=== PATIENT | male | born 2000 | race Caucasian/White ===

== ENCOUNTER 2018-03-23 11:53 | Emergency (ER) | payer SELFPAY ==
[2018-03-23 12:25] LABS: #Eosinphils 0.2 thou/uL (0.0-0.7); #Lymphocytes 2.1 thou/uL (1.20-3.40); #Monocytes 0.7 thou/uL (0.11-0.59); %Basophils 0.5 % (0.0-1.0); %Eosinophils 3.1 % (0.0-10.0); %Lymphocytes 29.3 % (28.0-48.0); %Monocytes 10.4 % (0.0-4.0); %Neutrophils 56.7 % (31.0-61.0); Mean Corpuscular HGB CONC 31.9 g/dL (32.0-36.0); Mean Corpuscular Hemoglobin 26.6 pg (25.0-35.0); Mean Corpuscular Volume 83.3 fL (78.0-98.0); Mean Platelet Volume 6.1 fL (7.4-10.4); Platelet Count 526 thou/uL (130-400); RBC Distribution Width 14.6 % (11.5-14.5); Red Blood Cell (RBC) Count 4.88 mill/uL (4.00-5.20); White Blood Cell (WBC) Count 7.1 thou/uL (4.8-10.8)
[2018-03-23 12:53] LABS: Anion Gap 14 mmol/L (10-20); BUN (Urea Nitrogen) 8 mg/dL (8.4-21.0); Calc. Creatinine Clearance 0 mL/min (70-130); Calcium 9.7 mg/dL (7.8-10.44); Carbon Dioxide 23 mmol/L (22-29); Chloride 104 mmol/L (98-107); Estimated GFR-MDRD Greater than 90; Glucose 101 mg/dL (70-105); Potassium 4.1 mmol/L (3.5-5.1); Sodium 137 mmol/L (136-145)
--- NOTE | 2018-03-23 13:28 | RAD ---
CHEST PA AND LATERAL: HISTORY: Cough. FINDINGS: The heart size is normal. The lungs are well expanded, with bilateral interstitial infiltrates with upper and mid zone dominance. A cavitary lesion is noted in the right mid lung. IMPRESSION: Findings suspicious for pneumonia. Pulmonary tuberculosis should also be considered in the different ial diagnosis. CODE T POS: REX
== END 2018-03-23 14:23 | disposition home or self-care (01) ==
LOC: ERS 11:53
DX: J18.9 Pneumonia, unspecified organism (principal); F17.210 Nicotine dependence, cigarettes, uncomplicated
CPT/HCPCS: 36415; 71046; 80048; 85025; 87070; 87205; 93005

== ENCOUNTER 2018-03-26 23:34 | Inpatient (IN) | payer SELFPAY ==
[2018-03-27] MEDS ORDERED: HYDROcodone/Acetaminophen 10/325 mg Tablet ONE ×2 (00:12→00:25)
[2018-03-27] MEDS ORDERED: Piperacillin/Tazobactam 4.5 GM VIAL ONE (00:25)
[2018-03-27 00:37] LABS: #Basophils 0.1 thou/uL (0.0-0.2); #Eosinphils 0.3 thou/uL (0.0-0.7); #Lymphocytes 2.9 thou/uL (1.20-3.40); #Monocytes 0.9 thou/uL (0.11-0.59); #Neutrophils 8.1 thou/uL (1.40-6.50); %Basophils 0.6 % (0.0-1.0); %Eosinophils 2.4 % (0.0-10.0); %Lymphocytes 23.7 % (28.0-48.0); %Monocytes 6.9 % (0.0-4.0); %Neutrophils 66.4 % (31.0-61.0); Hemoglobin 13.1 g/dL (14.0-18.0); Mean Corpuscular HGB CONC 32.1 g/dL (32.0-36.0); Mean Corpuscular Hemoglobin 26.6 pg (25.0-35.0); Mean Corpuscular Volume 83.1 fL (78.0-98.0); Mean Platelet Volume 5.8 fL (7.4-10.4); Platelet Count 646 thou/uL (130-400); RBC Distribution Width 14.5 % (11.5-14.5); White Blood Cell (WBC) Count 12.2 thou/uL (4.8-10.8)
[2018-03-27 00:57] LABS: ALT (SGPT) 12 U/L (8-55); AST (SGOT) 15 U/L (10-45); Albumin 3.9 g/dL (3.5-5.0); Alkaline Phosphatase 82 U/L (Less than 750); Anion Gap 15 mmol/L (10-20); BUN (Urea Nitrogen) 10 mg/dL (8.4-21.0); Bilirubin, Total 0.3 mg/dL (0.2-1.2); Calc. Creatinine Clearance 0 mL/min (70-130); Calcium 9.6 mg/dL (7.8-10.44); Carbon Dioxide 26 mmol/L (22-29); Chloride 103 mmol/L (98-107); Estimated GFR-MDRD Greater than 90; Globulin 3.7 g/dL (2.4-3.5); Glucose 91 mg/dL (70-105); Potassium 4.5 mmol/L (3.5-5.1); Protein, Total 7.6 g/dL (6.0-8.3); Sodium 139 mmol/L (136-145)
[2018-03-27] MEDS ORDERED: diphenhydrAMINE 50 MG/ML VIAL ONE (01:14)
[2018-03-27] MEDS ORDERED: methylPREDNISolone Sod Succ/PF 125 MG/2 ML VIAL ONE (01:14)
[2018-03-27 02:09] LABS: HIV (1/2) Antibody/Antigen Non-Reactive (NonReactive); HIV 1/2 INDEX 0.14 S/CO (<1.00)
[2018-03-27] MEDS ORDERED: Acetaminophen 325 MG TAB PO PRN (03:12)
[2018-03-27] MEDS ORDERED: Senokot S 8.6-50 MG TAB PO PRN (03:12)
[2018-03-27] MEDS ORDERED: Sodium Chloride 0.9% 1,000 ML IV SCH (03:15)
--- NOTE | 2018-03-27 04:02 | HP ---
CHIEF COMPLAINT: Chest pain and shortness of breath. HISTORY OF PRESENT ILLNESS: The patient is a 17-year-old male with no significant past medical history who presents to the hospital with complaints of chest pain, initially substernal and then localized more to the left side of his chest. The patient stated that he has been having cough for about a year now. The patient stated that started last March and he has been given three bouts of antibiotics without any relief. The patient stated that he has always been told that either he has bronchitis or pneumonia and has been treated with antibiotics without improvement. The patient denies any recent travel out of the country. He states that he has moved around the [facility], initially went to [place], then to [place], and then back to [place], and then back to [place], and now currently he is residing in [place], [place]. The patient's mother and father are . Currently, the patient is living with father and his girlfriend. The patient's father had TB and was treated with isoniazid sometime back. The patient states that he was in halfway for one day only. The patient denies any exposures to any immigrants recently. The patient as mentioned has not traveled anywhere either. The patient has been having significant amounts of night sweats to the point that he changes cloths, also he has lost significant amount of weight over the last year. The patient continues to have this cough and is unable to help his father doing work around the house since he gets very short of breath. He denies any nausea, vomiting, or diarrhea. The patient did state that he has been feeling hot and cold and apparently has been having low-grade fever at home also. PAST MEDICAL HISTORY: None. PAST SURGICAL HISTORY: None. FAMILY HISTORY: Mother has Massimo's disease. He had siblings, who are fine. His father had latent TB. REVIEW OF SYSTEMS: All negative except for the ones mentioned above in the HPI. SOCIAL HISTORY: The patient used to smoke about three or four cigarettes a day, currently has not been doing that. Smokes sometimes marijuana and drinks few beers over the weekend. PHYSICAL EXAMINATION: VITAL SIGNS: Temperature of 98.8, heart rate of 80, blood pressure 112/60, he is 98% on room air. GENERAL: He is awake, alert, and oriented x3. Does not appear in any distress. HEENT: Normocephalic and atraumatic. No lymphadenopathy noted. He does appear to be very slim. CV: S1 and S2 present. No murmurs, rubs, or gallops. LUNGS: Clear to auscultation. No rhonchi or wheezes noted. ABDOMEN: Soft and nontender. Bowel sounds are present x2. EXTREMITIES: No edema. Pedal pulses are present x2. NEUROVASCULAR: No focal deficits noted. SKIN: No cuts, lesions, or bruises noted. LABORATORY RESULTS: His HIV test was negative. WBCs of 12.2, hemoglobin of 13.1, hematocrit of 40.8, platelets of 464. Differentials; neutrophils 66.4, lymphocytes of 23.7, monocytes of 6.9. Chemistry; sodium of 139, potassium of 4.5, BUN of 10, creatinine 0.81. He did have CT chest with contrast, which indicated there were multiple cavitary lesions in the lung, the largest in the right lung apex measuring 7.3 cm. There are additional noncavitary pulmonary nodules bilaterally and there is extensive tree in bud opacity consistent with bronchiolitis. The sequela of these findings is suspicious for atypical active infection such as mycobacterium or fungal infection. There is also mild mediastinal lymphadenopathy. ASSESSMENT AND PLAN: The patient is a very pleasant 17-year-old male who presents to the hospital with complaints of chest pain and shortness of breath. 1. Multiple cavitary lesions. Differential could be possible TB, possible fungal infection, possible autoimmune like Castro's, also malignancy; however, it is less likely. At this point, we will just rule out TB. We will put him on isolation. Consult Infectious Disease. We will put him on Unasyn for now. Also, HIV test is negative. We will check ANCA. We will also check acid-fast x3, interferon, also Fungitell has been sent. We will also put the patient on airborne isolation. I will hold off starting the patient on any kind of TB medication until he is seen by Infectious Disease. Also, we will check LDH and go from there. 2. Deep venous thrombosis prophylaxis. We will put the patient on sequential compression devices or Lovenox subcu. Job ID: [id number]
[2018-03-27] MEDS: Ampicillin/Sulbactam 3 GM in Sodium Chloride 0.9% 100 ML IVPB SCH ×2 (04:17→10:09)
[2018-03-27 05:52] VITALS: BMI 17.3
[2018-03-27] MEDS: traMADol HCl 50 MG TAB PO PRN ×3 (05:53→18:30)
[2018-03-27 06:36] LABS: #Lymphocytes 1.2 thou/uL (1.20-3.40); #Monocytes 0.1 thou/uL (0.11-0.59); #Neutrophils 9.5 thou/uL (1.40-6.50); %Basophils 0.2 % (0.0-1.0); %Eosinophils 0.1 % (0.0-10.0); %Lymphocytes 11.3 % (28.0-48.0); %Monocytes 0.5 % (0.0-4.0); %Neutrophils 87.9 % (31.0-61.0); Hemoglobin 13.1 g/dL (14.0-18.0); Mean Corpuscular HGB CONC 32.4 g/dL (32.0-36.0); Mean Corpuscular Volume 83.2 fL (78.0-98.0); Platelet Count 576 thou/uL (130-400); RBC Distribution Width 14.7 % (11.5-14.5); Red Blood Cell (RBC) Count 4.87 mill/uL (4.00-5.20); White Blood Cell (WBC) Count 10.8 thou/uL (4.8-10.8)
[2018-03-27 06:56] LABS: Anion Gap 14 mmol/L (10-20); BUN (Urea Nitrogen) 8 mg/dL (8.4-21.0); Calc. Creatinine Clearance 120 mL/min (70-130); Calcium 9.7 mg/dL (7.8-10.44); Carbon Dioxide 24 mmol/L (22-29); Chloride 105 mmol/L (98-107); Estimated GFR-MDRD Greater than 90; Glucose 153 mg/dL (70-105); Potassium 4.9 mmol/L (3.5-5.1); Sodium 138 mmol/L (136-145)
[2018-03-27] MEDS: Enoxaparin Sodium 40 MG/0.4 ML SYRINGE SC SCH (08:42)
--- NOTE | 2018-03-27 09:45 | CT ---
PRELIMINARY REPORT/[facility]ER[facility] AFTER-HOURS PROCEDURE CT Chest With Contrast EXAM DATE/TIME: 03/27/2018 12:44 AM CLINICAL HISTORY: 17 years old, male; Pain; Other: Pneumonia, R/O tb; Patient HX: M17 presents to ed for cough. PT moth er reports PT has had SX for 1 year. PT had been previously diagnosed with pertussis, and pneumonia, no help with previous treatment. PT reports night sweats, constant low grade fever, cough, chest pain , inability to drink, weight loss, fatigue. PT father reports he was previously exposed to tb and was treated, tests positive and is inactive. PT denies traveling out of the country, PT has been in custodial for one day, but had SX before. PT denies drug use. Discussed x-ray findings of lesion. TECHNIQUE: Axial computed tomography images of the chest with intravenous contrast. Coronal reformatted images were created and reviewed. COMPARISON: No relevant prior studies available. FINDINGS: Lungs: There are multiple cavitary lesions in the lungs, the largest in the right lung apex measuring a maximum of 7.3 cm and there are additional non-cavitary pulmonary nodules bilaterally and there is extensive tree in bud opacity consistent with bronchiolitis. The sequela of these findings is suspic ious for atypical active infection such as mycobacterial or fungal infection. Pleural space: Normal. No pneumothorax. No pleural effusion. Heart: Normal. No cardiomegaly. No pericardial effusion. Aorta: Normal. No aortic aneurysm. Lymph nodes: There is mild mediastinal lymphadenopathy. Bones/joints: Unremarkable. No acute fracture. Soft tissues: Unremarkable. IMPRESSION: 1. There are multiple cavitary lesions in the lungs, the largest in the right lung apex measuring a m aximum of 7.3 cm and there are additional non-cavitary pulmonary nodules bilaterally and there is ext ensive tree in bud opacity consistent with bronchiolitis. The sequela of these findings is suspicious for atypical active infection such as mycobacterial or fungal infection. 2. There is mild mediastinal lymphadenopathy. Thank you for allowing us to participate in the care of your patient. Dictated and Authenticated by: Guru Tucker MD 03/27/2018 1:01 AM Central Time ([place] & [place]) FINAL REPORT CT CHEST WITH IV CONTRAST: Date: 03/27/18 FINDINGS/IMPRESSION: I agree with the preliminary report given by Darcy. POS: KOSTA
--- NOTE | 2018-03-27 11:41 | PDOC.PN ---
- Subjective Encounter Start Date: 03/27/18 Encounter Start Time: 08:00 Subjective: no sob -: has cough with expectoration of yellow sputum, no blood -: is amb in room - Objective Resuscitation Status - Order Detail: 03/27/18 03:12 Resuscitation Status Routine Resuscitation Status: FULL: Full Resuscitation MAR Reviewed: Yes Vital Signs & Weight: Vital Signs (12 hours) Temp Pulse Resp BP Pulse Ox 03/27/18 07:20 97.4 F L 55 L 12 107/68 96 03/27/18 03:08 98.4 F 85 16 115/74 96 Weight Weight 128 lb I&O: 03/26/18 03/27/18 03/28/18 06:59 06:59 06:59 Intake Total 540 Balance 540 Result Diagrams: 03/27/18 06:10 03/27/18 06:10 Phys Exam - Physical Examination HEENT: PERRLA, moist MMs Neck: no JVD, supple Respiratory: no wheezing, no rales Cardiovascular: RRR, no significant murmur Gastrointestinal: soft, non-tender, positive bowel sounds Musculoskeletal: no edema, pulses present Neurological: non-focal, moves all 4 limbs Psychiatric: normal affect, A&O x 3 Dx/Plan (1) Pulmonary cavitary lesion Code(s): J98.4 - OTHER DISORDERS OF LUNG Status: Acute - Plan to r/o TB, await afb sputum samples from patient -: is on unasyn -: d/w , will see patient -: fungitel, quantiferon were sent out * . Review of Systems - Medications/Allergies Allergies/Adverse Reactions: Allergies Allergy/AdvReac Type Severity Reaction Status Date / Time vancomycin Allergy Verified 03/27/18 05:38 Medications: Current Medications Acetaminophen (Tylenol) 650 mg PO Q4H PRN PRN Reason: Headache/Fever/Mild Pain (1-3) Last Admin: 03/27/18 04:18 Dose: 650 mg Enoxaparin Sodium (Lovenox) 40 mg SC 0900 [facility] Last Admin: 03/27/18 08:42 Dose: 40 mg Sodium Chloride (Normal Saline 0.9%) 1,000 mls @ 75 mls/hr IV .[id number] [facility] Last Admin: 03/27/18 04:16 Dose: 1,000 mls Ampicillin Sodium/Sulbactam (Sodium 3 gm/ Sodium Chloride) 100 mls @ 200 mls/ hr IVPB 0400,1000,1600,2200 [facility] Last Admin: 03/27/18 10:09 Dose: 100 mls Senna/Docusate Sodium (Senokot S) 2 tab PO BIDPRN PRN PRN Reason: Constipation Tramadol HCl (Ultram) 50 mg PO Q6H PRN PRN Reason: Moderate Pain (4-6) Last Admin: 03/27/18 05:53 Dose: 50 mg
[2018-03-27] MEDS ORDERED: Piperacillin/Tazobactam 3.375 GM in Sodium Chloride 0.9% 100 ML IVPB SCH (16:00)
[2018-03-27] MEDS: Sodium Chloride 3% (15 ML) NEB NEB SCH (19:05)
--- NOTE | 2018-03-27 19:09 | CON ---
DATE OF CONSULTATION: 03/27/2018 SERVICE: Pulmonary Medicine. REASON FOR CONSULTATION: Cavitary lesions. HISTORY OF PRESENT ILLNESS: The patient is a 17-year-old white male with past medical history significant for essentially nothing. For the last year, he has had a productive cough. He brings up yellow sputum on a daily basis. Sometimes, it is worse than others. It has been under investigation on multiple occasions. He has been on some antibiotics and steroids throughout the year. That being said, it just simply progressing. He is having night sweats, weight loss that has been unexplained. He has no known exposures to chemicals, dust, asbestos, or tuberculosis. He is actually in his usual state of health currently. PAST MEDICAL HISTORY: Chronic cough. PAST SURGICAL HISTORY: None. FAMILY HISTORY: Noncontributory. Of note, he does not have any cystic fibrosis or tuberculosis in primary family members. His father has latent tuberculosis, but has never had active TB. SOCIAL HISTORY: Negative for current alcohol, tobacco, or illicit drug use. He rarely uses marijuana. He has had a couple of beers from time to time, but never drinks excess. He has no exposure to chemicals, dust, asbestos, or tuberculosis that he is aware of. ALLERGIES: NO KNOWN DRUG ALLERGIES. MEDICATIONS: List of his inpatient medications was reviewed. I have discontinued his antibiotics currently. REVIEW OF SYSTEMS: General, head, ears, eyes, nose, throat, cardiovascular, respiratory, GI, , musculoskeletal, neurologic, and skin are negative except as mentioned in the HPI. PHYSICAL EXAMINATION: VITAL SIGNS: Afebrile, pulse 77, blood pressure 116/66, respirations 12, and saturation 99% on room air. GENERAL: The patient is awake, alert, in no apparent distress. LUNGS: Excellent air entry. Rhonchi are present. No prolonged expiratory phase or wheezing is present. HEART: Normal rate regular. ABDOMEN: Soft, nontender, and nondistended. Bowel sounds are positive. MUSCULOSKELETAL: No cyanosis or clubbing. No pitting in the bilateral lower extremities. NEUROLOGIC: Grossly nonfocal. LABORATORY DATA: WBC 10.8, hemoglobin 13.1, and platelets 576,000. Basic metabolic profile and liver function studies are unremarkable. LDH is normal, lactate 1.1. HIV 1 and 2 are nonreactive. IMAGING: CT of the chest demonstrates extensive tree-in-bud opacifications scattered throughout bilateral lung parker. He also has a large cavitating cystic structure in the right upper lobe, and a smaller one in the posterior segment of the right lower lobe. There are two small cavities in the left mid lung zone as well. ASSESSMENT: 1. Chronic cough. 2. Abnormal CT scan, characterized by extensive tree-in-bud opacifications, and pulmonary cavities/cystic structures with overt bronchiectasis noted. DISCUSSION AND PLAN: I am going to interrupt his antibiotic therapy. We can resume empiric antibiotics if he becomes increasingly septic. That being said, I would like for him to generate 3 sputums over the next 24 hours and possibly have the patient undergo bronchoscopy without any antibiotics on board. If we do not get any answer with the sputum over the next 24 hours, we will plan on doing a bronchoscopy Tuesday. I will get a rheumatoid factor to add to the ANCAs, which are currently pending. Agree with fungal studies. We will have respiratory therapy generate sputum. Cystic fibrosis panel will be obtained as the patient has cystic structures, in addition to some overt bronchiectasis. This patient will need to remain in-house until the bronchoscopy specimen is obtained if we need to. 70 minutes have been devoted to this patient in various activities. I personally reviewed all imaging studies and laboratory data noted within this document. For fifty percent of this time, I was interacting with the patient at the bedside or coordinating care with the care team. For the remainder of the time I was immediately available to the patient in the hospital unit. Job ID: [id number] MTDD
--- NOTE | 2018-03-27 20:05 | CON ---
DATE OF CONSULTATION: 03/27/2018 REASON FOR CONSULTATION: Possible tuberculosis. HISTORY OF PRESENT ILLNESS: A 17-year-old admitted with cavitary pneumonia and chronic cough, and weight loss, treated previously as routine community-acquired pneumonia elsewhere without improvement. 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 He is currently living in [place], [place] with his father. Apparently, his father had what he describes as latent tuberculosis treated with INH in the past and the patient was in detention for 1 day in the past. He was admitted in Airborne Precautions and sputum has been submitted for evaluation. No headaches, visual symptoms, sore throat, odynophagia, or dysphagia. No toothache or back pain. No abdominal pain or diarrhea. No genitourinary symptoms. No joint symptoms. PAST MEDICAL HISTORY: Otherwise negative. PAST SURGICAL HISTORY: No surgical history. FAMILY HISTORY: Mother has [place] disease. His father had a history of latent TB in the past, treated with INH reportedly. SOCIAL HISTORY: Smokes every other day. 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 Drinks beer mostly. No drug use otherwise. ALLERGIES: VANCOMYCIN REPORTEDLY. PHYSICAL EXAMINATION: VITAL SIGNS: T-max 98.4. Other vital signs are normal. His weight is 128 pounds, he is 6 feet tall. SKIN: Unremarkable. HEENT: Ocular movements conjugate. Oral cavity normal. Numerous teeth in place in good shape. NECK: Supple. No jugular vein distention. No lymphadenopathy. LUNGS: With no obvious crackles or wheezing. HEART: S1 and S2, regular rate. ABDOMEN: No abdominal findings of note. No distention or organomegaly or tenderness. No ascites. No bladder distention. MUSCULOSKELETAL: No joint inflammatory activity. NEUROLOGIC: He is awake, alert, oriented. Nonfocal. LABORATORY DATA: White cell count 12,000 and now 10,000, hemoglobin 13, platelets 646, and 66% neutrophils. Sodium 139, creatinine 0.81. Liver profile normal. Albumin 3.9, globulin 3.7, LDH 147. HIV serology negative. Had a respiratory culture from admission and that is a routine with polymicrobial mariajose, 5 to 10 epithelial cells. AFB is pending. CT of chest demonstrated multiple cavitary lesions in lungs, largest in the right lung apex 7.53 cm; additional noncavitary pulmonary nodules bilaterally; extensive tree-in-bud opacity consistent with bronchiolitis. There is mild mediastinal lymphadenopathy. ASSESSMENT: Chronic cavitary pneumonia with weight loss in a young man with some history of exposure to tuberculosis. DISCUSSION: Differential diagnosis obviously mycobacterium tuberculosis infection as the top ten possibilities here, other possibilities would be fungal infection which is less likely, aspiration pneumonia due to anaerobe which is unlikely, other pyogenic infections unlikely as well, particularly staphylococcal. He does not have the degree of toxicity that one would expect in that scenario. Vasculitis or congenital process such as lymphangioleiomyomatosis, histiocytosis X are less likely. Continuous sampling sputum for hopefully establishing diagnosis and then starting treatment. I believe QuantiFERON has been submitted as well. HIV was negative and no other issues are apparent at this point in time. Job ID: [id number]
[2018-03-28] MEDS: traMADol HCl 50 MG TAB PO PRN ×4 (00:19→21:03)
[2018-03-28] MEDS: Sodium Chloride 3% (15 ML) NEB NEB SCH (07:35)
[2018-03-28] MEDS: Enoxaparin Sodium 40 MG/0.4 ML SYRINGE SC SCH (09:12)
--- NOTE | 2018-03-28 11:11 | PDOC.PN ---
- Subjective Encounter Start Date: 03/28/18 Encounter Start Time: 08:20 Subjective: no sob, feels better -: eating and ambulating well - Objective Resuscitation Status - Order Detail: 03/27/18 03:12 Resuscitation Status Routine Resuscitation Status: FULL: Full Resuscitation MAR Reviewed: Yes Vital Signs & Weight: Vital Signs (12 hours) Temp Pulse Resp BP Pulse Ox 03/28/18 07:35 62 16 97 03/28/18 07:33 97.5 F L 62 18 104/69 97 03/28/18 04:27 97.4 F L 94 20 115/69 99 03/28/18 00:25 97.5 F L 63 20 105/61 98 Weight Admit Weight 128 lb Weight 128 lb I&O: 03/27/18 03/28/18 03/29/18 06:59 06:59 06:59 Intake Total 2290 Balance 2290 Result Diagrams: 03/27/18 06:10 03/27/18 06:10 Phys Exam - Physical Examination HEENT: PERRLA, moist MMs Neck: no JVD, supple Respiratory: no wheezing, no rales Cardiovascular: RRR, no significant murmur Gastrointestinal: soft, non-tender, positive bowel sounds Musculoskeletal: no edema, pulses present Neurological: non-focal, moves all 4 limbs Psychiatric: normal affect, A&O x 3 Dx/Plan (1) Pulmonary cavitary lesion Code(s): J98.4 - OTHER DISORDERS OF LUNG Status: Acute Comment: multiple cavities - Plan has given sputum samples for afb, await results -: further w/u per -: is off antibiotics -: nebs prn * . Review of Systems - Medications/Allergies Allergies/Adverse Reactions: Allergies Allergy/AdvReac Type Severity Reaction Status Date / Time vancomycin Allergy Verified 03/27/18 05:38 Medications: Current Medications Acetaminophen (Tylenol) 650 mg PO Q4H PRN PRN Reason: Headache/Fever/Mild Pain (1-3) Last Admin: 03/27/18 04:18 Dose: 650 mg Enoxaparin Sodium (Lovenox) 40 mg SC 0900 [facility] Last Admin: 03/28/18 09:12 Dose: 40 mg Pneumococcal Polyvalent Vaccine (Pneumovax 23) 0.5 ml IM .ONCE ONE Stop: 03/29/18 09:01 Senna/Docusate Sodium (Senokot S) 2 tab PO BIDPRN PRN PRN Reason: Constipation Sodium Chloride (Sodium Chloride 3%) 10 ml NEB BID-RT [facility] Stop: 03/28/18 18:31 Last Admin: 03/28/18 07:35 Dose: 10 ml Tramadol HCl (Ultram) 50 mg PO Q6H PRN PRN Reason: Moderate Pain (4-6) Last Admin: 03/28/18 06:29 Dose: 50 mg
[2018-03-28] MEDS ORDERED: Pyrazinamide 500 MG TAB PO SCH (15:30)
[2018-03-28] MEDS ORDERED: Rifampin 300 MG CAP PO SCH (16:00)
[2018-03-28] MEDS ORDERED: Isoniazid 100 MG TAB PO SCH (16:00)
--- NOTE | 2018-03-28 17:04 | PRG ---
DATE OF SERVICE: 03/28/2018 SUBJECTIVE: Demario Botello is sleeping when I entered the room. OBJECTIVE: GENERAL: He is afebrile. VITAL SIGNS: Heart rate is 58, respiratory rate 16, oximetry is 96% on room air , and blood pressure 95/58. He says he produces sputum today. This has not resulted yet. AFB smear from yesterday was 4+ positive AFB, this was not called to me. IMPRESSION: Mycobacterium tuberculosis, most likely. PLAN: Start treatment, pending sensitivities. Job ID: [id number] MTDD
[2018-03-29] MEDS ORDERED: Rifampin 300 MG CAP PO SCH ×2 (09:00→10:00)
[2018-03-29] MEDS ORDERED: Ethambutol HCl 400 MG TAB PO SCH (09:00)
[2018-03-29] MEDS ORDERED: Pyrazinamide 500 MG TAB PO SCH (09:00)
[2018-03-29] MEDS ORDERED: Isoniazid 100 MG TAB PO SCH ×2 (09:00→10:00)
[2018-03-29] MEDS: traMADol HCl 50 MG TAB PO PRN ×3 (09:10→21:34)
[2018-03-29] MEDS: pyridOXINE 50 MG (B6) TAB PO SCH (09:10)
[2018-03-29] MEDS: Enoxaparin Sodium 40 MG/0.4 ML SYRINGE SC SCH (09:10)
[2018-03-29] MEDS: Pyrazinamide 500 MG TAB PO SCH (09:11)
[2018-03-29] MEDS: Ethambutol HCl 400 MG TAB PO SCH (09:11)
[2018-03-29] MEDS: Rifampin 300 MG CAP PO SCH (09:12)
[2018-03-29] MEDS: Isoniazid 100 MG TAB PO SCH (09:12)
--- NOTE | 2018-03-29 10:42 | PDOC.PN ---
- Subjective Encounter Start Date: 03/29/18 Encounter Start Time: 10:00 Subjective: no complaints - Objective Resuscitation Status - Order Detail: 03/27/18 03:12 Resuscitation Status Routine Resuscitation Status: FULL: Full Resuscitation MAR Reviewed: Yes Vital Signs & Weight: Vital Signs (12 hours) Temp Pulse Resp BP Pulse Ox 03/29/18 08:12 98.1 F 78 18 94/58 L 93 L 03/29/18 04:05 98.3 F 80 18 102/61 94 L 03/29/18 00:05 98.6 F 85 16 108/69 97 03/28/18 23:27 95 Weight Admit Weight 128 lb Weight 128 lb I&O: 03/28/18 03/29/18 03/30/18 06:59 06:59 06:59 Intake Total 2290 1232 Balance 2290 1232 Result Diagrams: 03/27/18 06:10 03/27/18 06:10 Phys Exam - Physical Examination HEENT: PERRLA, moist MMs Neck: no JVD, supple Respiratory: no wheezing, no rales Cardiovascular: RRR, no significant murmur Gastrointestinal: soft, non-tender, positive bowel sounds Musculoskeletal: no edema, pulses present Neurological: non-focal, moves all 4 limbs Psychiatric: normal affect, A&O x 3 Dx/Plan (1) Pulmonary tuberculosis confirmed by sputum microscopy Code(s): A15.0 - TUBERCULOSIS OF LUNG Status: Acute - Plan is on rifampin, inh, ethambutol, pyrazinamide and B6 -: dc plan per pulm adv -: [facility] dept has been updated per CM Jakeh * . Review of Systems - Medications/Allergies Allergies/Adverse Reactions: Allergies Allergy/AdvReac Type Severity Reaction Status Date / Time vancomycin Allergy Verified 03/27/18 05:38 Medications: Current Medications Acetaminophen (Tylenol) 650 mg PO Q4H PRN PRN Reason: Headache/Fever/Mild Pain (1-3) Last Admin: 03/27/18 04:18 Dose: 650 mg Enoxaparin Sodium (Lovenox) 40 mg SC 0900 [facility] Last Admin: 03/29/18 09:10 Dose: 40 mg Ethambutol HCl (Myambutol) 800 mg PO DAILY [facility] Last Admin: 03/29/18 09:11 Dose: 800 mg Isoniazid (Isoniazid) 300 mg PO 1000 [facility] Last Admin: 03/29/18 09:12 Dose: 300 mg Pyrazinamide (Pyrazinamide) 1,000 mg PO DAILY [facility] Last Admin: 03/29/18 09:11 Dose: 1,000 mg Pyridoxine HCl (Vitamin B 6) 50 mg PO DAILY [facility] Last Admin: 03/29/18 09:10 Dose: 50 mg Rifampin (Rifadin) 600 mg PO 1000 [facility] Last Admin: 03/29/18 09:12 Dose: 600 mg Senna/Docusate Sodium (Senokot S) 2 tab PO BIDPRN PRN PRN Reason: Constipation Tramadol HCl (Ultram) 50 mg PO Q6H PRN PRN Reason: Moderate Pain (4-6) Last Admin: 03/29/18 09:10 Dose: 50 mg
[2018-03-29 14:24] LABS: ANA Symphony (Qualitative) Negative (Negative); ANA Symphony (Quantitative) 0.1 Ratio (< 0.7 Negative); dsDNA IgG Antibody Less than 0.5 IU/mL (<10 Negative)
[2018-03-29 14:40] LABS: CCP IgG Antibody 0.6 EliAU/mL (<7 Negative); EliA RAS New Method **** NEW METHOD ****; Rheumatoid Factor IgA Antibody 1.7 IU/mL (<14 Negative); Rheumatoid Factor IgM Antibody 0.7 IU/mL (<3.5 Negative)
--- NOTE | 2018-03-29 17:46 | PRG ---
DATE OF SERVICE: 03/29/2018 SERVICE: Pulmonary Medicine. INTERVAL HISTORY: The patient is doing fine from Respiratory standpoint. He is coughing up sputum. Denies any current chest pain, fevers, or chills. Otherwise, there has been no interval change to his condition. OBJECTIVE: VITAL SIGNS: Afebrile, pulse 93, blood pressure 110/69, respirations 16, and saturation is 96% on room air. GENERAL: The patient is awake, alert, in no apparent distress. LUNGS: Excellent air entry. Rhonchi are present. No prolonged expiratory phase or wheezing is appreciated. HEART: Normal rate, regular. ABDOMEN: Soft, nontender, and nondistended. Bowel sounds are positive. MUSCULOSKELETAL: No cyanosis or clubbing. There is no pitting in the bilateral lower extremities. NEUROLOGIC: Grossly nonfocal. LABORATORIES: CHEL screen, rheumatoid factor, CHEL is unremarkable. CCP is negative. HIV-1 and 2 are nonreactive. Respiratory virus panel is negative. AFB smear is positive at 4+ in 2/2 cultures. ASSESSMENT: 1. Pulmonary tuberculosis, suspected. 2. Bronchiectasis. 3. Pulmonary cavities. DISCUSSION: The patient most likely has active pulmonary tuberculosis. I would start fourth-drug therapy. From my perspective, he is stable for transition out of the hospital. I will have him return to clinic to see me in 3 months, and my plan is to repeat a CT scan of the chest in roughly September of 2018. At this point, he has no further requirements for inpatient Pulmonary Critical Care opinion, and I will sign off. Please call with additional questions or concerns moving forward. Job ID: [id number]
--- NOTE | 2018-03-29 23:34 | PRG ---
DATE OF SERVICE: 03/29/2018 SUBJECTIVE: Mr. Botello is feeling well, still coughing, intermittent sputum production. No chest pain. No abdominal pain or diarrhea. OBJECTIVE: VITAL SIGNS: T-max 99.2, pulse 97, respirations 20, and O2 saturation 98%. GENERAL: Does not appear to be in any distress. Awake and oriented. LUNGS: Symmetric air entry. Expiratory crackles, left side. HEART: S1 and S2. Regular rate. ABDOMEN: Soft, not distended. NEURO: Normal. LABORATORY DATA: White cell count 10.8, hemoglobin 13, platelets 576. Creatinine 0.8. HIV serology negative. Now, we have two samples with 4+ acid-fast bacilli seen. ASSESSMENT AND DISCUSSION: Cavitary pneumonia, chronic with positive AFB, 4+ in sputum. Most likely scenario is mycobacterium tuberculosis as expected. The patient has been started on 4-drug regimen to be continued under guidance by Health Department after discharge planning. He should be discharged on quarantine followed by the Health Department to be released once they clear him from usually 2 to 3 weeks after discharge and proper intake of antimycobacterial regimen. Job ID: [id number]
[2018-03-30] MEDS: Enoxaparin Sodium 40 MG/0.4 ML SYRINGE SC SCH (08:42)
[2018-03-30] MEDS: Pyrazinamide 500 MG TAB PO SCH (08:43)
[2018-03-30] MEDS: Rifampin 300 MG CAP PO SCH (08:43)
[2018-03-30] MEDS: Ethambutol HCl 400 MG TAB PO SCH (08:43)
[2018-03-30] MEDS: pyridOXINE 50 MG (B6) TAB PO SCH (08:47)
[2018-03-30] MEDS: Isoniazid 100 MG TAB PO SCH (08:47)
[2018-03-30] MEDS: traMADol HCl 50 MG TAB PO PRN ×3 (10:01→22:52)
--- NOTE | 2018-03-30 13:41 | PDOC.PN ---
- Subjective Encounter Start Date: 03/30/18 Encounter Start Time: 10:15 Subjective: no new complaints -: no abd pain or nausea -: urine is orange as expected with rifampin - Objective Resuscitation Status - Order Detail: 03/27/18 03:12 Resuscitation Status Routine Resuscitation Status: FULL: Full Resuscitation MAR Reviewed: Yes Vital Signs & Weight: Vital Signs (12 hours) Temp Pulse Resp BP BP Pulse Ox 03/30/18 13:27 89 107/68 03/30/18 11:25 98.6 F 97 12 82/60 L 94 L 03/30/18 09:12 95 03/30/18 07:45 98.2 F 98 16 108/69 95 03/30/18 04:33 97.8 F 77 20 91/57 L 93 L Weight Admit Weight 128 lb Weight 128 lb I&O: 03/29/18 03/30/18 03/31/18 06:59 06:59 06:59 Intake Total 1232 Balance 1232 Result Diagrams: 03/27/18 06:10 03/27/18 06:10 Phys Exam - Physical Examination HEENT: PERRLA, moist MMs Neck: no JVD, supple Respiratory: no wheezing, no rales Cardiovascular: RRR, no significant murmur Gastrointestinal: soft, non-tender, positive bowel sounds Musculoskeletal: no edema, pulses present Neurological: non-focal, moves all 4 limbs Psychiatric: normal affect, A&O x 3 Dx/Plan (1) Pulmonary tuberculosis confirmed by sputum microscopy Code(s): A15.0 - TUBERCULOSIS OF LUNG Status: Acute - Plan pt is planning to stay with his biological mom and sister in [place] -: 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 Review of Systems - Medications/Allergies Allergies/Adverse Reactions: Allergies Allergy/AdvReac Type Severity Reaction Status Date / Time vancomycin Allergy Verified 03/27/18 05:38 Medications: Current Medications Acetaminophen (Tylenol) 650 mg PO Q4H PRN PRN Reason: Headache/Fever/Mild Pain (1-3) Last Admin: 03/27/18 04:18 Dose: 650 mg Enoxaparin Sodium (Lovenox) 40 mg SC 0900 [facility] Last Admin: 03/30/18 08:42 Dose: 40 mg Ethambutol HCl (Myambutol) 800 mg PO DAILY [facility] Last Admin: 03/30/18 08:43 Dose: 800 mg Isoniazid (Isoniazid) 300 mg PO 1000 [facility] Last Admin: 03/30/18 08:47 Dose: 300 mg Pyrazinamide (Pyrazinamide) 1,000 mg PO DAILY [facility] Last Admin: 03/30/18 08:43 Dose: 1,000 mg Pyridoxine HCl (Vitamin B 6) 50 mg PO DAILY [facility] Last Admin: 03/30/18 08:47 Dose: 50 mg Rifampin (Rifadin) 600 mg PO 1000 [facility] Last Admin: 03/30/18 08:43 Dose: 600 mg Senna/Docusate Sodium (Senokot S) 2 tab PO BIDPRN PRN PRN Reason: Constipation Tramadol HCl (Ultram) 50 mg PO Q6H PRN PRN Reason: Moderate Pain (4-6) Last Admin: 03/30/18 10:01 Dose: 50 mg
[2018-03-30 14:12] LABS: Cytoplasmic (C-ANCA) <1:20 titer (Neg:<1:20); Myeloperoxidase AutoAbs <9.0 U/mL (0.0-9.0); Perinuclear (P-ANCA) <1:20 titer (Neg:<1:20); Proteinase-3 AutoAbs Less than 3.5 U/mL (0.0-3.5)
[2018-03-31] MEDS: Pyrazinamide 500 MG TAB PO SCH (08:58)
[2018-03-31] MEDS: pyridOXINE 50 MG (B6) TAB PO SCH (08:58)
[2018-03-31] MEDS: Isoniazid 100 MG TAB PO SCH (08:58)
[2018-03-31] MEDS: Rifampin 300 MG CAP PO SCH (08:59)
[2018-03-31] MEDS: Enoxaparin Sodium 40 MG/0.4 ML SYRINGE SC SCH (08:59)
[2018-03-31] MEDS: Ethambutol HCl 400 MG TAB PO SCH (08:59)
--- NOTE | 2018-03-31 09:59 | PDOC.PN ---
- Subjective Encounter Start Date: 03/31/18 Encounter Start Time: 09:05 Subjective: no sob, feels better -: no new complaints - Objective Resuscitation Status - Order Detail: 03/27/18 03:12 Resuscitation Status Routine Resuscitation Status: FULL: Full Resuscitation MAR Reviewed: Yes Vital Signs & Weight: Vital Signs (12 hours) Temp Pulse Resp BP BP Pulse Ox 03/31/18 09:45 95 03/31/18 08:00 98.2 F 90 16 110/69 95 03/31/18 04:25 98.2 F 86 20 107/71 96 03/31/18 00:27 98.5 F 93 20 114/76 96 Weight Admit Weight 128 lb Weight 128 lb Result Diagrams: 03/27/18 06:10 03/27/18 06:10 Phys Exam - Physical Examination HEENT: PERRLA, moist MMs Neck: no JVD, supple Respiratory: no wheezing, no rales Cardiovascular: RRR, no significant murmur Gastrointestinal: soft, non-tender, positive bowel sounds Musculoskeletal: no edema, pulses present Neurological: non-focal, moves all 4 limbs Psychiatric: normal affect, A&O x 3 Dx/Plan (1) Pulmonary tuberculosis confirmed by sputum microscopy Code(s): A15.0 - TUBERCULOSIS OF LUNG Status: Acute - Plan is on 4 anti TB drugs with vit B6 -: may dc anytime health dept is ready for him -: hemostable -: tolerating meds well so far * . Review of Systems - Medications/Allergies Allergies/Adverse Reactions: Allergies Allergy/AdvReac Type Severity Reaction Status Date / Time vancomycin Allergy Verified 03/27/18 05:38 Medications: Current Medications Acetaminophen (Tylenol) 650 mg PO Q4H PRN PRN Reason: Headache/Fever/Mild Pain (1-3) Last Admin: 03/27/18 04:18 Dose: 650 mg Enoxaparin Sodium (Lovenox) 40 mg SC 0900 [facility] Last Admin: 03/31/18 08:59 Dose: 40 mg Ethambutol HCl (Myambutol) 800 mg PO DAILY [facility] Last Admin: 03/31/18 08:59 Dose: 800 mg Isoniazid (Isoniazid) 300 mg PO 1000 [facility] Last Admin: 03/31/18 08:58 Dose: 300 mg Pyrazinamide (Pyrazinamide) 1,000 mg PO DAILY [facility] Last Admin: 03/31/18 08:58 Dose: 1,000 mg Pyridoxine HCl (Vitamin B 6) 50 mg PO DAILY [facility] Last Admin: 03/31/18 08:58 Dose: 50 mg Rifampin (Rifadin) 600 mg PO 1000 [facility] Last Admin: 03/31/18 08:59 Dose: 600 mg Senna/Docusate Sodium (Senokot S) 2 tab PO BIDPRN PRN PRN Reason: Constipation Tramadol HCl (Ultram) 50 mg PO Q6H PRN PRN Reason: Moderate Pain (4-6) Last Admin: 03/30/18 22:52 Dose: 50 mg
[2018-03-31] MEDS: traMADol HCl 50 MG TAB PO PRN ×2 (10:43→16:53)
[2018-03-31 17:10] LABS: A. flavus Negative (Neg:<1:1); A. fumigatus Negative (Neg:<1:1); A. niger Negative (Neg:<1:1)
[2018-04-01] MEDS: traMADol HCl 50 MG TAB PO PRN ×2 (00:08→22:35)
[2018-04-01] MEDS: pyridOXINE 50 MG (B6) TAB PO SCH (09:20)
[2018-04-01] MEDS: Rifampin 300 MG CAP PO SCH (09:20)
[2018-04-01] MEDS: Ethambutol HCl 400 MG TAB PO SCH (09:21)
[2018-04-01] MEDS: Pyrazinamide 500 MG TAB PO SCH (09:21)
[2018-04-01] MEDS: Isoniazid 100 MG TAB PO SCH (09:21)
[2018-04-01] MEDS: Enoxaparin Sodium 40 MG/0.4 ML SYRINGE SC SCH (09:21)
--- NOTE | 2018-04-01 11:42 | PDOC.PN ---
- Subjective Encounter Start Date: 04/01/18 Encounter Start Time: 08:30 Subjective: is sleeping, awakens easily -: no sob or abd pain or nausea - Objective Resuscitation Status - Order Detail: 03/27/18 03:12 Resuscitation Status Routine Resuscitation Status: FULL: Full Resuscitation MAR Reviewed: Yes Vital Signs & Weight: Vital Signs (12 hours) Temp Pulse Resp BP BP Pulse Ox 04/01/18 08:40 97 04/01/18 07:33 98.2 F 90 14 114/72 97 04/01/18 04:30 98.4 F 90 18 92/57 L 97 04/01/18 00:25 98.3 F 95 24 H 135/75 96 Weight Admit Weight 128 lb Weight 128 lb I&O: 03/31/18 04/01/18 04/02/18 06:59 06:59 06:59 Intake Total 240 Balance 240 Result Diagrams: 03/27/18 06:10 03/27/18 06:10 Phys Exam - Physical Examination HEENT: PERRLA, moist MMs Neck: no JVD, supple Respiratory: no wheezing, no rales Cardiovascular: RRR, no significant murmur Gastrointestinal: soft, non-tender, positive bowel sounds Musculoskeletal: no edema, pulses present Neurological: non-focal, moves all 4 limbs Psychiatric: normal affect, A&O x 3 Dx/Plan (1) Pulmonary tuberculosis confirmed by sputum microscopy Code(s): A15.0 - TUBERCULOSIS OF LUNG Status: Acute - Plan continue anti TB 4 meds with B6 -: awaiting Health dept clearance for discharge plan -: may dc anytime if above is arranged -: cmp in am to check liver function * . Review of Systems - Medications/Allergies Allergies/Adverse Reactions: Allergies Allergy/AdvReac Type Severity Reaction Status Date / Time vancomycin Allergy Verified 03/27/18 05:38 Medications: Current Medications Acetaminophen (Tylenol) 650 mg PO Q4H PRN PRN Reason: Headache/Fever/Mild Pain (1-3) Last Admin: 03/27/18 04:18 Dose: 650 mg Enoxaparin Sodium (Lovenox) 40 mg SC 0900 [facility] Last Admin: 04/01/18 09:21 Dose: 40 mg Ethambutol HCl (Myambutol) 800 mg PO DAILY [facility] Last Admin: 04/01/18 09:21 Dose: 800 mg Isoniazid (Isoniazid) 300 mg PO 1000 [facility] Last Admin: 04/01/18 09:21 Dose: 300 mg Pyrazinamide (Pyrazinamide) 1,000 mg PO DAILY [facility] Last Admin: 04/01/18 09:21 Dose: 1,000 mg Pyridoxine HCl (Vitamin B 6) 50 mg PO DAILY [facility] Last Admin: 04/01/18 09:20 Dose: 50 mg Rifampin (Rifadin) 600 mg PO 1000 [facility] Last Admin: 04/01/18 09:20 Dose: 600 mg Senna/Docusate Sodium (Senokot S) 2 tab PO BIDPRN PRN PRN Reason: Constipation Tramadol HCl (Ultram) 50 mg PO Q6H PRN PRN Reason: Moderate Pain (4-6) Last Admin: 04/01/18 00:08 Dose: 50 mg
--- NOTE | 2018-04-01 18:48 | EKG ---
Test Reason : Blood Pressure : / mmHG Vent. Rate : 106 BPM Atrial Rate : 106 BPM P-R Int : 142 ms QRS Dur : 098 ms QT Int : 306 ms P-R-T Axes : 037 057 057 degrees QTc Int : 406 ms Sinus tachycardia Otherwise normal ECG Confirmed by CARMEN RUSSO DO ([id number]), production editor JAYME MATA ([id number] on 04/01/2018 6:47:28 PM Referred By: Confirmed By:CARMEN RUSSO DO
[2018-04-02 06:24] LABS: ALT (SGPT) 7 U/L (8-55); AST (SGOT) 10 U/L (10-45); Albumin 3.6 g/dL (3.5-5.0); Alkaline Phosphatase 83 U/L (Less than 750); Anion Gap 14 mmol/L (10-20); BUN (Urea Nitrogen) 12 mg/dL (8.4-21.0); Bilirubin, Total 0.2 mg/dL (0.2-1.2); Calc. Creatinine Clearance 122 mL/min (70-130); Calcium 9.4 mg/dL (7.8-10.44); Carbon Dioxide 24 mmol/L (22-29); Chloride 103 mmol/L (98-107); Estimated GFR-MDRD Greater than 90; Globulin 3.5 g/dL (2.4-3.5); Glucose 105 mg/dL (70-105); Protein, Total 7.1 g/dL (6.0-8.3); Sodium 137 mmol/L (136-145)
[2018-04-02] MEDS: Enoxaparin Sodium 40 MG/0.4 ML SYRINGE SC SCH (08:59)
[2018-04-02] MEDS: Pyrazinamide 500 MG TAB PO SCH (08:59)
[2018-04-02] MEDS: pyridOXINE 50 MG (B6) TAB PO SCH (08:59)
[2018-04-02] MEDS: Ethambutol HCl 400 MG TAB PO SCH (08:59)
[2018-04-02] MEDS: traMADol HCl 50 MG TAB PO PRN ×2 (09:00→20:29)
[2018-04-02] MEDS: Isoniazid 100 MG TAB PO SCH (09:00)
[2018-04-02] MEDS: Rifampin 300 MG CAP PO SCH (09:00)
--- NOTE | 2018-04-02 13:25 | PDOC.PN ---
- Subjective Encounter Start Date: 04/02/18 Encounter Start Time: 11:00 Subjective: no sob or abd pain -: no new complaints, is amb well - Objective Resuscitation Status - Order Detail: 03/27/18 03:12 Resuscitation Status Routine Resuscitation Status: FULL: Full Resuscitation MAR Reviewed: Yes Vital Signs & Weight: Vital Signs (12 hours) Temp Pulse Resp BP BP Pulse Ox 04/02/18 11:38 98 F 75 14 94/58 L 96 04/02/18 08:03 98.1 F 93 14 96/62 95 04/02/18 04:00 98.1 F 85 18 91/59 L 95 Weight Admit Weight 128 lb Weight 128 lb I&O: 04/01/18 04/02/18 04/03/18 06:59 06:59 06:59 Intake Total 740 Balance 740 Result Diagrams: 03/27/18 06:10 04/02/18 05:15 Phys Exam - Physical Examination HEENT: PERRLA, moist MMs Neck: no JVD, supple Respiratory: no wheezing, no rales Cardiovascular: RRR, no significant murmur Gastrointestinal: soft, non-tender, positive bowel sounds Musculoskeletal: no edema, pulses present Neurological: non-focal, moves all 4 limbs Psychiatric: normal affect, A&O x 3 Dx/Plan (1) Pulmonary tuberculosis confirmed by sputum microscopy Code(s): A15.0 - TUBERCULOSIS OF LUNG Status: Acute - Plan dc plan per social work/dept of health arrangements -: medically stable for dc anytime if above is arranged -: is on anti TB 4 meds with B6, nebs prn -: LFT's are normal on 04/01/2018 * . Review of Systems - Medications/Allergies Allergies/Adverse Reactions: Allergies Allergy/AdvReac Type Severity Reaction Status Date / Time vancomycin Allergy Verified 03/27/18 05:38 Medications: Current Medications Acetaminophen (Tylenol) 650 mg PO Q4H PRN PRN Reason: Headache/Fever/Mild Pain (1-3) Last Admin: 03/27/18 04:18 Dose: 650 mg Enoxaparin Sodium (Lovenox) 40 mg SC 0900 [facility] Last Admin: 04/02/18 08:59 Dose: 40 mg Ethambutol HCl (Myambutol) 800 mg PO DAILY [facility] Last Admin: 04/02/18 08:59 Dose: 800 mg Isoniazid (Isoniazid) 300 mg PO 1000 [facility] Last Admin: 04/02/18 09:00 Dose: 300 mg Pyrazinamide (Pyrazinamide) 1,000 mg PO DAILY [facility] Last Admin: 04/02/18 08:59 Dose: 1,000 mg Pyridoxine HCl (Vitamin B 6) 50 mg PO DAILY [facility] Last Admin: 04/02/18 08:59 Dose: 50 mg Rifampin (Rifadin) 600 mg PO 1000 [facility] Last Admin: 04/02/18 09:00 Dose: 600 mg Senna/Docusate Sodium (Senokot S) 2 tab PO BIDPRN PRN PRN Reason: Constipation Tramadol HCl (Ultram) 50 mg PO Q6H PRN PRN Reason: Moderate Pain (4-6) Last Admin: 04/02/18 09:00 Dose: 50 mg
[2018-04-03] MEDS: Enoxaparin Sodium 40 MG/0.4 ML SYRINGE SC SCH (08:30)
[2018-04-03] MEDS: pyridOXINE 50 MG (B6) TAB PO SCH (08:31)
[2018-04-03] MEDS: Pyrazinamide 500 MG TAB PO SCH (08:32)
[2018-04-03] MEDS: Ethambutol HCl 400 MG TAB PO SCH (08:32)
[2018-04-03] MEDS: traMADol HCl 50 MG TAB PO PRN ×2 (09:19→14:18)
[2018-04-03] MEDS: Rifampin 300 MG CAP PO SCH (10:41)
[2018-04-03] MEDS: Isoniazid 100 MG TAB PO SCH (10:41)
--- NOTE | 2018-04-03 10:54 | PDOC.PN ---
- Subjective Encounter Start Date: 04/03/18 Encounter Start Time: 09:30 Subjective: no sob, feels better - Objective Resuscitation Status - Order Detail: 03/27/18 03:12 Resuscitation Status Routine Resuscitation Status: FULL: Full Resuscitation MAR Reviewed: Yes Vital Signs & Weight: Vital Signs (12 hours) Temp Pulse Resp BP Pulse Ox 04/03/18 08:28 97.9 F 82 16 85/60 L 97 04/03/18 08:00 97 04/03/18 04:30 98.3 F 82 16 90/51 L 95 Weight Admit Weight 128 lb Weight 128 lb I&O: 04/02/18 04/03/18 04/04/18 06:59 06:59 06:59 Intake Total 740 1170 Balance 740 1170 Result Diagrams: 03/27/18 06:10 04/02/18 05:15 Phys Exam - Physical Examination HEENT: PERRLA, moist MMs Neck: no JVD, supple Respiratory: no wheezing, no rales Cardiovascular: RRR, no significant murmur Gastrointestinal: soft, non-tender, positive bowel sounds Musculoskeletal: no edema, pulses present Neurological: non-focal, moves all 4 limbs Psychiatric: normal affect, A&O x 3 Dx/Plan (1) Pulmonary tuberculosis confirmed by sputum microscopy Code(s): A15.0 - TUBERCULOSIS OF LUNG Status: Acute - Plan 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
[2018-04-03 12:04] VITALS: BP 101/69; TEMP 98.6
--- NOTE | 2018-04-04 14:13 | DIS ---
DATE OF ADMISSION: 03/27/2018 DATE OF DISCHARGE: 04/03/2018 DISCHARGE DISPOSITION: To home. PRIMARY DISCHARGE DIAGNOSIS: Multiple cavitary pulmonary tuberculosis. PROCEDURES DONE DURING HOSPITALIZATION: CT chest done on the day of admission showed multiple cavitary lesions in the lung, the largest in the right lung apex measuring a maximum of 7.3 cm. There are additional non-cavitary pulmonary nodules bilaterally and there is extensive tree-in-bud opacity consistent with bronchiolitis. Sputum for AFB smear was 4+. Staining procedure with auramine-rhodamine fluorescent stain. Blood cultures x2, no growth. H and H 13 and 40, platelet count 576. White count of 10 with 87% neutrophils and 11% lymphocytes. Liver enzymes were within normal limits. Total bilirubin 0.2, albumin is 3.6, BUN 12, creatinine 0.8. CHEL screen was negative. HIV 1 and 2 nonreactive. Aspergillus antibodies for flavus, fumigatus, and niger were negative. TB QuantiFERON test was indeterminate. INPATIENT CONSULT: 1. Dr. Mina for Pulmonology. 2. Dr. Gupta for Infectious Disease. DISCHARGE MEDICATIONS: 1. Rifampin 600 mg p.o. daily. 2. Pyridoxine 50 mg p.o. daily. 3. Pyrazinamide 1000 mg daily. 4. Isoniazid 300 mg daily. 5. Ethambutol 800 mg p.o. daily. ALLERGIES: ALLERGIC TO VANCOMYCIN. DISCHARGE PLAN: The patient will be following up with Health Department for DOT therapy. BRIEF COURSE DURING HOSPITALIZATION: The patient initially got admitted on the with complaints of shortness of breath and chest pain. He also had evening rise of temperature with sweating and chills. The patient's initial x-ray and CAT scan were suspicious for tuberculosis. The patient was under droplet precautions. He provided two samples for sputum for AFB, both of which showed 4+ positive. He was initiated on antituberculosis medication. Health Department nurse Ms. Lomeli was notified. His LFTs were within normal limits. The patient has tolerated all four medications with vitamin B6 during his stay here. He needs to follow up with Health Department for further advice regarding quarantine and DOT therapy. workers' compensation claims examiner consultation was requested for the same and this has been set up on the . He will be shortly discharged home. Please see a [id number] documentation for the day of discharge on [employer]. Job ID: [id number]
== END 2018-04-03 14:38 | disposition home or self-care (01) | DRG 179 ==
LOC: ERS 23:34 → SURG B 03-27 01:37
PROVIDERS: ADMIT Internal Medicine; ATTEND Internal Medicine
DX: A15.0 Tuberculosis of lung (principal); Z87.891 Personal history of nicotine dependence
CPT/HCPCS: 36415; 71260; 80053; 81220; 83520; 83605; 83615; 85025; 86038; 86200; 86225; 86256; 86480; 86606; 87040; 87116; 87206; 87389; 87449; 87633; 87798; 89220; 90471; 90732; 93005; 94640; 96365; 96375; G0009; J0295; J1200; J1650; J2543; J2930; J3370; J7050

== ENCOUNTER 2019-01-20 16:44 | Emergency (ER) | payer SELFPAY ==
[2019-01-20] MEDS ORDERED: Famotidine 20 MG TAB ONE (17:12)
[2019-01-20] MEDS ORDERED: Dexamethasone 4 mg/ml Vial ONE (17:12)
[2019-01-20] MEDS ORDERED: diphenhydrAMINE 25 MG CAP ONE (17:12)
== END 2019-01-20 17:15 | disposition home or self-care (01) ==
LOC: ERS 16:44
DX: L23.7 Allergic contact dermatitis due to plants, except food (principal); F17.210 Nicotine dependence, cigarettes, uncomplicated
CPT/HCPCS: 99283; J1100; Q0163

== ENCOUNTER 2019-02-06 13:50 | Emergency (ER) | payer SELFPAY ==
--- NOTE | 2019-02-06 14:27 | RAD ---
Exam: Left foot 3 views: HISTORY: Pain following injury COMPARISON: None FINDINGS: No evidence for fracture, dislocation, or other significant acute osseous abnormality. IMPRESSION: No significant acute process.
== END 2019-02-06 17:23 | disposition home or self-care (01) ==
LOC: ERS 13:50
DX: S93.602A Unspecified sprain of left foot, initial encounter (principal); J45.909 Unspecified asthma, uncomplicated; F17.210 Nicotine dependence, cigarettes, uncomplicated; X58.XXXA Exposure to other specified factors, initial encounter; Y93.67 Activity, basketball

== ENCOUNTER 2019-04-08 15:02 | Emergency (ER) | payer SELFPAY ==
--- NOTE | 2019-04-08 15:50 | RAD ---
XR Chest Pa Lat STANDARD HISTORY: Cough, fever COMPARISON: 01/02/2019 FINDINGS: The heart size is normal. The lungs are well expanded without focal areas of consolidation, pneumothorax or pleural effusions. Mild chronic changes in the right perihilar/infrahilar region again seen. IMPRESSION: No radiographic evidence of acute cardiopulmonary process.
== END 2019-04-08 16:25 | disposition home or self-care (01) ==
LOC: ERS 15:02
DX: J10.1 Influenza due to other identified influenza virus with other respiratory manifestations (principal); F17.210 Nicotine dependence, cigarettes, uncomplicated; J45.909 Unspecified asthma, uncomplicated
CPT/HCPCS: 71046; 87804